=== PATIENT | female | born 1985 | race Asian ===

== ENCOUNTER → 2017-04-26 | Outpatient (CLI) | payer BC ==
[2017-04-26 12:46] LABS: BASO % 0.3 %; BASO ABS # 0.02 K/uL (0-0.2); COMPLETE YES; EOS % 1.9 %; HEMATOCRIT 38.2 % (37-47); IG% 0.2 %; LYMPH % 27.5 %; LYMPH ABS # 1.59 K/uL (1.2-3.4); MEAN CELL VOLUME 90.5 fL (80-100); MEAN CORPUSCULAR HEMOGLOBIN 29.1 pg (25-34); MEAN CORPUSCULAR HGB CONC 32.2 g/dl (32-36); MEAN PLATELET VOLUME 11.7 fL (7.4-10.4); MONO % 4.3 %; NEUT % 65.8 %; PLATELET COUNT 200 K/uL (130-400); RED BLOOD COUNT 4.22 M/uL (4.2-5.4); WHITE BLOOD COUNT 5.78 K/uL (4.8-10.8)
[2017-04-26 13:18] LABS: BLOOD UREA NITROGEN 9 mg/dl (7-18); BUN/CREATININE RATIO 14.8 (10-20); CALCIUM 8.4 mg/dl (8.5-10.1); CARBON DIOXIDE 26 mmol/L (21-32); CHLORIDE 108 mmol/L (98-107); CREATININE 0.62 mg/dl (0.60-1.20); GLUCOSE 87 mg/dl (70-99); POTASSIUM 3.7 mmol/L (3.5-5.1); SODIUM 141 mmol/L (136-145)
== END | disposition home or self-care (01) ==
LOC: C.LAB1850 10:06
PROVIDERS: ATTEND Nurse Practitioner Adult Health
DX: N62 Hypertrophy of breast (principal)

== ENCOUNTER → 2017-04-30 | Outpatient (CLI) | payer BC ==
--- NOTE | 2017-04-30 13:28 | MAMMOGRAPHY REPORT ---
BILATERAL DIGITAL DIAGNOSTIC MAMMOGRAM TOMOSYNTHESIS WITH CAD AND TARGETED BILATERAL ULTRASOUND: 04/30 CLINICAL HISTORY: She reports a prior surgical biopsy in [place] in 2014, which yielded hyperplasia. T he patient reports no atypical or malignant cells were seen. She reports that findings were seen wit hin her breasts in imaging in [place], and she was told at that time that she should have follow up ult rasounds every 6 months. The patient reports bilateral axillary pain but denies any focal palpable lio mps. TECHNIQUE: Breast tomosynthesis in addition to standard 2D mammography was performed. Current study was also evaluated with a Computer Aided Detection (CAD) system. Bilateral CC and MLO 2-D and tomosy nthesis images, spot compression left CC and MLO tomosynthesis images including C views, and spot mag nification bilateral cc and ML views were obtained. COMPARISON: No prior exams were available for comparison. BREAST COMPOSITION: The tissue of both breasts is extremely dense, which lowers the sensitivity of m ammography. FINDINGS: Spot magnification views of the right breast demonstrate a small 4 mm cluster of predomina ntly punctate calcifications in the right upper outer quadrant, with a few other punctate calcificati ons seen scattered throughout the right breast. Spot magnification views of the left breast demonstr ate loosely grouped calcifications centered around the left 12:00 breast some of which are punctate a lthough the calcifications differ somewhat in shape and size. An area of questionable architectural distortion was seen within the left upper outer quadrant. A linear scar marker was placed at the pat ient's surgical scar and spot compression views were obtained. The scar marker is located at the sit e of the architectural distortion, therefore the architectural distortion is benign and compatible wi th postsurgical changes. The remainder of both breasts are negative, without suspicious masses, calc ifications, or areas of architectural distortion noted. Targeted ultrasound was performed of bilateral axillae in the regions of pain pointed out by the jolie ent. No suspicious masses or other suspicious sonographic abnormalities are evident. A long discussion was had with the patient with the help of an fixed assets accountant over the telephone. It wa s discussed with the patient that without having the report or outside images available to review, it is unknown which findings follow-up ultrasound was recommended for. It was also discussed that we t ypically do not do screening whole breast ultrasound every 6 months, especially in patients under 40, given the likelihood of multiple false positive findings leading to possible biopsies. Additionally , if screening whole breast ultrasound is desired, this needs to be scheduled in a screening breast u ltrasound time slot as the exam is time-consuming and she was only scheduled for a diagnostic mammogr am and a limited ultrasound. The patient reports that she will see if her parents in [place] can send her the report and/or images from her prior exams. IMPRESSION: ACR-BI-RADS CATEGORY 3: PROBABLY BENIGN, TARGETED ULTRASOUND ACR-BI-RADS CATEGORY 3: PRO BABLY BENIGN 1. Small cluster of calcifications in the right upper outer quadrant, and loosely grouped calcificat ions in the left 12:00 breast. Given no priors to document stability, recommend follow-up bilateral diagnostic mammograms in 6 months to confirm stability. 2. No suspicious mammographic or sonographic abnormality at the site of bilateral axillary pain repo rted by the patient. Recommend clinical follow-up. 3. The patient reports findings were seen within both breasts on outside imaging in [place], for which follow-up ultrasound was recommended in 6 months. It discussed with the patient that without having the report or outside images available for review, it is unknown which findings the follow-up ultras ound was recommended for. The patient will try to obtain the outside report and/or images for us to review. If this becomes available, she may need to return for additional ultrasound imaging. Althou gh screening bilateral whole breast ultrasound is not routinely recommended especially in patients un glen 40 and those that are not high risk, if this is desired by the ordering physician then she could return for this exam. The patient has been verbally notified of the results. Approximately 10% of breast cancers are not detected with mammography. A negative mammographic report should not delay biopsy if a clinically suggestive mass is present. Naz Baptiste M.D. ah/:04/30/2017 13:08:11 Outside Machinist Apprentice: Destinee Reid RT(Jo)(M), [facility] letter sent: Follow Up Recommended 3 BI-RADS Code: ACR-BI-RADS Category 3: Probably Benign Ultrasound BI-RADS: ACR-BI-RADS Category 3: Pr obably Benign
== END | disposition home or self-care (01) ==
LOC: C.MAMM 11:23
PROVIDERS: ATTEND Nurse Practitioner Adult Health
DX: R92.1 Mammographic calcification found on diagnostic imaging of breast (principal)

== ENCOUNTER → 2017-06-01 | Outpatient (CLI) | payer BC | END | disposition home or self-care (01) | LOC: C.PAPS 11:29 | PROVIDERS: ATTEND Physician Assistant | DX: Z01.419 Encounter for gynecological examination (general) (routine) without abnormal findings (principal) ==

== ENCOUNTER → 2017-06-17 | Outpatient (CLI) | payer BC ==
--- NOTE | 2017-06-18 13:22 | MAMMOGRAPHY REPORT ---
ULTRASOUND OF BOTH BREASTS: 06/17/2017 CLINICAL HISTORY: The patient had a bilateral whole breast ultrasound in [place] in 2014, and was told that she needed a six-month follow-up for breast masses. The patient translated the ultrasound repor t for my review, although the images are not available for review. Based on my interpretation of her translation, it shows that there were bilateral breast masses, some of which are solid and some of w hich are cystic, and short follow-up was recommended of the solid masses. 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 The patient also reports she has bilateral woody ast pain as well as pain in the left axillary region. She reports that she may be . COMPARISON: Comparison is made to exams dated: 04/30/2017 ultrasound and 04/30/2017 mammogram - [facility]. The prior outside ultrasound images from [place] are not available for review . TECHNIQUE: Real-time ultrasound of both breasts was performed. FINDINGS: Real-time high-resolution ultrasound was performed of both breasts including all 4 quadran ts and subareolar regions. Numerous solid and cystic masses were evident. In the left 12:00 breast, 4 cm from the nipple, there is an isoechoic solid-appearing 6 x 4 x 7 mm ma ss. There is also a possible isoechoic 5 x 4 x 6 mm mass in the left breast at 12:00, 2 cm from the nipple. Another possible isoechoic 9 x 8 mm mass is seen within the left breast at 1:00, 2 cm from t he nipple. In the left breast at 9:00, 2 cm from the nipple, there is an oval isoechoic solid-appear ing mass which measures 8 x 5 x 7 mm. An isoechoic solid-appearing 6 x 3 x 4 mm mass is also seen wi thin the left 9:00 breast, 6 cm from the nipple. Another oval isoechoic circumscribed mass measuring 7 x 6 mm is seen within the left 4:00 breast, 3 cm from the nipple. These masses are probably benig n and likely represent fibroadenomas. Multiple small benign cysts were also noted during the ultraso und exam. Ultrasound was also again performed of the left axillary region in the region of pain poin silvia out by the patient, which shows fibroglandular tissue within the left axillary region, which like ly represents accessory breast tissue, without evidence of a suspicious mass or other suspicious sono graphic abnormality. In the right 12:00 breast, periareolar region, there is an oval hypoechoic solid circumscribed 7 x 4 x 6 mm mass. Another slightly hypoechoic solid-appearing 7 x 5 mm mass is seen within the right 12:0 0 breast, 4 cm from the nipple. A round circumscribed solid-appearing 6 x 5 x 5 mm mass is also seen within the right 3:00 periareolar region (one of the images of the 3:00 mass is labeled as 1:00 erro neously). Adjacent to this are 2 smaller isoechoic masses which measure 4 and 3 mm each. Another ov al hypoechoic solid appearing 8 x 3 x 5 mm mass is seen within the right 7:00 breast, 4 cm from the n ipple. In the right breast at 9:00, 2 cm from the nipple, there is a partially anechoic and partiall y isoechoic circumscribed 5 x 5 mm mass which is probably benign and likely represents a complicated cyst. In the right breast at 9:00, 6 cm from the nipple, there is an isoechoic solid 8 x 5 x 7 mm ma ss. In the right 10:00 breast, 6 cm from the nipple, there is a possible isoechoic 6 x 7 mm mass. 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 Multiple small cys ts were also seen throughout the right breast during the exam. Given that this is the first time the masses have been imaged on ultrasound, short interval follow-up is recommended in 6 months. IMPRESSION: ACR-BI-RADS CATEGORY 3: PROBABLY BENIGN - FOLLOW-UP RECOMMENDED Numerous isoechoic and hypoechoic solid-appearing masses bilaterally, which are probably benign and l ikely represent fibroadenomas. Recommend short interval follow-up ultrasound in 6 months to confirm stability of the masses (30 minute time slot). At that time, bilateral diagnostic tomosynthesis mamm ograms can be performed to follow-up calcifications which were seen during the April 2017 diagnostic w orkup (if the patient is not ). The patient was verbally notified of the results. Naz Baptiste M.D. ah/:06/17/2017 17:01:46 Assistant Grocery Store Manager: Naz Baptiste MD, [facility] letter sent: Follow Up Recommended 3 BI-RADS Code: ACR-BI-RADS Category 3: Probably Benign
== END | disposition home or self-care (01) ==
LOC: C.MAMM 10:50
PROVIDERS: ATTEND Nurse Practitioner Adult Health
DX: Z12.31 Encounter for screening mammogram for malignant neoplasm of breast (principal); N63 Unspecified lump in breast

== ENCOUNTER → 2017-07-02 | Outpatient (CLI) | payer BC ==
[2017-07-02 18:05] LABS: URINE APPEARANCE CLEAR (CLEAR); URINE BILIRUBIN NEG (NEG); URINE COLOR YELLOW; URINE NITRITE NEG (NEG); URINE SPECIFIC GRAVITY 1.019 (1.000-1.030); UROBILINOGEN NEG (NEG)
[2017-07-02 18:08] LABS: MANUAL MICROSCOPIC REQUIRED? NO; REVIEW REQ? NO
== END | disposition home or self-care (01) ==
LOC: C.LABSPEC 16:44
PROVIDERS: ATTEND Obstetrics & Gynecology
DX: Z34.01 Encounter for supervision of normal first pregnancy, first trimester (principal)

== ENCOUNTER → 2017-07-09 | Outpatient (CLI) | payer BC ==
[2017-07-09 16:49] LABS: BASO % 0.1 %; BASO ABS # 0.01 K/uL (0-0.2); COMPLETE YES; EOS % 2.5 %; HEMATOCRIT 38.4 % (37-47); IG% 0.1 %; LYMPH % 19.3 %; LYMPH ABS # 1.38 K/uL (1.2-3.4); MEAN CORPUSCULAR HEMOGLOBIN 30.3 pg (25-34); MEAN CORPUSCULAR HGB CONC 33.3 g/dl (32-36); MEAN PLATELET VOLUME 11.9 fL (7.4-10.4); MONO % 6.6 %; NEUT % 71.4 %; PLATELET COUNT 186 K/uL (130-400); RED BLOOD COUNT 4.22 M/uL (4.2-5.4); WHITE BLOOD COUNT 7.16 K/uL (4.8-10.8)
[2017-07-13 14:29] LABS: CHLAMYDIA TRACH RNA*** NOT DETECTED (NOT DETECTED); GC (NEIS GONORRHOEAE)RNA** NOT DETECTED (NOT DETECTED)
== END | disposition home or self-care (01) ==
LOC: C.LAB1850 14:45
PROVIDERS: ATTEND Obstetrics & Gynecology
DX: Z34.01 Encounter for supervision of normal first pregnancy, first trimester (principal); O26.841 Uterine size-date discrepancy, first trimester